=== PATIENT | female | born 1945 | race Caucasian/White ===

== ENCOUNTER 2024-06-17 11:42 | Emergency (ER) | payer MEDICARE, BC ==
[~2024-06-17] VITALS: Ht 152.4 cm; Wt 54.4 kg
[2024-06-17] MEDS ORDERED: IV NORMAL SALINE 250 ML IV ONE (12:04)
[2024-06-17] MEDS ORDERED: IOHEXOL 350 100 ML INFUS..BTL ONE (12:04)
[2024-06-17] MEDS ORDERED: SWABABLE VALVE TRANSFER SET EA MC ONE (12:04)
[2024-06-17 12:10] LABS: BASOPHILS % (AUTO) 0.5 % (0.0-2.0); HEMATOCRIT 41.1 % (31.2-41.9); HEMOGLOBIN 14.3 g/dL (10.9-14.3); LYMPHOCYTES # (AUTO) 0.7 K/uL (0.8-4.8); LYMPHOCYTES % (AUTO) 8.8 % (20.5-51.5); MEAN CORPUSCULAR HEMOGLOBIN 34.7 uug (24.7-32.8); MEAN CORPUSCULAR HGB CONC 35 g/dL (32.3-35.6); MEAN CORPUSCULAR VOLUME 100.1 fL (75.5-95.3); MONOCYTES # (AUTO) 0.3 K/uL (0.1-1.30); MONOCYTES % (AUTO) 3.9 % (0.0-11.0); NEUTROPHILS # (AUTO) 7.3 K/uL (1.8-8.9); NEUTROPHILS % (AUTO) 86.8 % (38.5-71.5); PLATELET COUNT (AUTO) 303 K/uL (179-408); RED BLOOD CELL COUNT(AUTO) 4.11 MIL/uL (3.63-4.92); RED CELL DISTRIBUTION WIDTH 13.4 % (12.3-17.7); WHITE BLOOD COUNT (AUTO) 8.4 K/uL (3.8-11.8)
[2024-06-17 12:11] LABS: DIFFERENTIAL COMMENT 1
[2024-06-17 12:17] LABS: CALCIUM 9.5 mg/dL (8.5-10.1); CARBON DIOXIDE 26 mmol/L (21-32); CHLORIDE 97 mmol/L (98-107); CREATININE 0.9 mg/dL (0.6-1.3); GLUCOSE 112 mg/dL (74-106); POTASSIUM 3.5 mmol/L (3.5-5.1); SODIUM SERUM 135 mmol/L (136-145); UREA NITROGEN, BLOOD 7 mg/dL (7-18)
[2024-06-17 12:22] LABS: ALANINE AMINOTRANSFERASE 21 U/L (14-59); ALBUMIN 3.2 g/dL (3.4-5.0); ALKALINE PHOSPHATASE 159 U/L (50-136); ASPARTATE AMINOTRANSFERASE 41 U/L (15-37); BILIRUBIN,DIRECT 0.2 mg/dL (0.0-0.2); BILIRUBIN,TOTAL 0.7 mg/dL (0.2-1.0); TOTAL PROTEIN, SERUM 7.3 g/dL (6.4-8.2)
[2024-06-17] MEDS ORDERED: LOSA100T31 PO (13:02)
[2024-06-17] MEDS ORDERED: VITA40TA PO (13:02)
[2024-06-17] MEDS ORDERED: MAGN250T10 PO (13:02)
[2024-06-17] MEDS ORDERED: CHOL500062 PO (13:02)
[2024-06-17 13:10] LABS: *BILIRUBIN,URIN NEGATIVE (NEGATIVE); *BLOOD, URINE 1+ (NEGATIVE); *CLARITY,URINE CLEAR (CLEAR); *COLOR,URINE YELLOW (YELLOW); *KETONES,URINE NEGATIVE (NEGATIVE); *PROTEIN,URINE NEGATIVE (NEGATIVE); *UROBILINOGEN,URINE 0.2 E.U./dl (NORMAL); LEUKOCYTE ESTERASE ,URINE NEGATIVE (NEGATIVE); NITRITE, URINE POSITIVE (NEGATIVE); UGLUCOSE NEGATIVE (NEGATIVE)
[2024-06-17] MEDS ORDERED: ENOXAPARIN SODIUM 60 MG/0.6 ML DISP.SYRIN SQ ONE (13:11)
[2024-06-17] MEDS: ASPIRIN 325 MG TABLET PO ONE (13:12)
[2024-06-17] MEDS ORDERED: ASPIRIN 325 MG TABLET ONE (13:12)
[2024-06-17 13:13] LABS: BACTERIA,URINE MODERATE /HPF (NONE SEEN); SQUAMOUS EPITHELIAL CELL,UR FEW /HPF (NONE SEEN); WBC,URINE 0-3 /HPF (0-3)
[2024-06-17] MEDS: ENOXAPARIN SODIUM 60 MG/0.6 ML DISP.SYRIN SQ ONE (13:13)
[2024-06-17 13:24] LABS: *AMPHETAMINE, URINE NEGATIVE (NEGATIVE); *BARBITURATE, URINE NEGATIVE (NEGATIVE); *BENZODIAZEPINE, URINE NEGATIVE (NEGATIVE); *CANNABINOID, URINE NEGATIVE (NEGATIVE); *COCCAINE, URINE NEGATIVE (NEGATIVE); *OPIATE, URINE NEGATIVE (NEGATIVE); *PHENCYCLIDINE SCREEN,URINE NEGATIVE (NEGATIVE); FENTANYL, URINE NEGATIVE (NEGATIVE)
[2024-06-17 17:09] VITALS: O2SAT 98
== END 2024-06-17 17:31 | disposition short-term general hospital (02) ==
LOC: ER 11:46
DX: I21.4 Non-ST elevation (NSTEMI) myocardial infarction (principal); F05 Delirium due to known physiological condition; I10 Essential (primary) hypertension; Z79.899 Other long term (current) drug therapy; Z20.822 Contact with and (suspected) exposure to COVID-19
CPT/HCPCS: 99291; 70496; 86870; 71045; 87426; 80076; 80048; 82962; 85025; 85730; 86850; 86900; 86901; 87086; 84484 ×3; 36415; 70498; 93005; 80307; 70450; 96372; 81001; J1650; Q9967; A4606; A4663